=== PATIENT | female | born 1990 | race Caucasian/White ===

== ENCOUNTER 2016-04-27 12:52 | Emergency (ER) | payer OTHER ==
[2016-04-27 13:50] VITALS: BP 114/62
[2016-04-27 14:43] LABS: MANUAL DIFF NEEDED? NO
[2016-04-27 14:49] LABS: BASO% 0.3 % (0.0-0.8); EOS# 0.22 X1000 (0.0-0.7); EOS% 2.4 % (0.0-10.0); HEMATOCRIT 41.8 % (37.0-47.0); HEMOGLOBIN 14.1 g/dL (12.0-16.0); IMM GRAN# 0.02 X1000 (0.0-0.04); IMM GRAN% 0.2 % (0.0-0.5); LYMPH# 2.11 X1000 (1.2-3.4); LYMPH% 23.1 % (20.5-51.1); MCH 31.5 PG (27-31); MCHC 33.7 g/dL (33-37); MCV 93.3 FL (81-99); MONO# 0.72 X1000 (0.11-0.59); MONO% 7.9 % (1.7-9.3); MPV 11.8 FL (7.4-10.4); NEUT% 66.1 % (42.2-75.2); PLT 259 X1000 (130-400); RBC 4.48 XMIL (4.2-5.4)
[2016-04-27 15:09] LABS: AGAP 10; ALBUMIN 4.1 g/dL (3.5-5.0); ALKALINE PHOSPHATASE 75 U/L (32-104); BUN 6 mg/dL (8-22); CALCIUM 9.4 mg/dL (8.8-10.2); CHLORIDE 105 mmol/L (98-107); COSMO 276; GOT 38 U/L (10-30); GPT 11 U/L (10-36); SODIUM 139 mmol/L (136-145); TCO2 24 mmol/L (25-35); TOTAL BILIRUBIN 0.61 mg/dL (0.20-1.00); TOTAL PROTEIN 6.9 g/dL (6.3-8.3)
--- NOTE | 2016-04-27 16:01 | PROVIDER DOCUMENTATION ---
HPI-EENT General - General Chief Complaint: Abscess Stated Complaint: FACIAL SWELLING/EYE COMPLAINT Time Seen by Provider: 04/27/16 15:43 Source: patient Allergies/Adverse Reactions: Patient Allergies Allergy/AdvReac Type Severity Reaction Status Date / Time No Known Allergies Allergy Verified 04/27/16 16:01 Home Medications: Home Medication List Medication Instructions Recorded Confirmed Last Taken Type Cephalexin [Keflex] 500 mg PO 4XDAY #40 capsule 04/27/16 Unknown Rx Clindamycin [Cleocin] 300 mg PO DIRECTED 04/27/16 04/27/16 Unknown History Sulfamethoxazole/Trimethoprim 1 each PO DIRECTED 04/27/16 04/27/16 Unknown History [Bactrim Ds Tablet] - History of Present Illness-EENT General Nature of Presenting Problem: 25 y/o WF c/o facial swelling x 3 days. Pt states that she was seen at urgent care yesterday and given dx of cellulitis and given 2 shots and 2 Abx-bactrim, clindamycin. States today, swelling is worse and involves the eyes, L>R. Denies any vision changes. States started at bridge of nose and spread to forehead and bilat eye orbits. Review of Systems - Adult - REVIEW OF SYSTEMS - ADULT Constitutional: reports: no symptoms reported. denies: chills, fever Eyes: reports: see HPI, discharge, eye pain, redness. denies: blurred vision, double vision Ears, Nose, Mouth & Throat: reports: no symptoms reported. denies: ear pain, nose pain Cardiovascular: reports: no symptoms reported. denies: chest pain, palpitations Respiratory: reports: no symptoms reported. denies: dyspnea on exertion, shortness of breath Gastrointestinal: reports: no symptoms reported. denies: abdominal pain, nausea , vomiting Genitourinary: reports: no symptoms reported. denies: dysuria, frequency Musculoskeletal: reports: no symptoms reported. denies: joint pain, joint swelling Integumentary: reports: see HPI, other. denies: nail changes, rash Neurological: reports: no symptoms reported. denies: numbness, paresthesia Psychiatric: reports: no symptoms reported Endocrine: reports: no symptoms reported. denies: cold intolerance, heat intolerance Hematologic/Lymphatic: reports: no symptoms reported. denies: easy bruising, prolonged bleeding Allergic/Immunologic: reports: no symptoms reported All Other Systems: Reviewed and Negative Past History - Adult - PAST MEDICAL HISTORY-ADULT Review of Records: reports: Nursing Assessment Review, Medications Reviewed - SOCIAL HISTORY Smoking: cigarettes, less than 1 pack/day Alcohol Use Frequency: never Physical Exam- EENT - Physical Exam EENT Initial Vital Signs Reviewed: Yes General Appearance: alert, mild distress Eye Exam: bilateral eye: PERRL, other (bilat orbital redness/swelling L>R) Ear Exam: bilateral ear: auricle normal Throat Exam: normal mouth inspection Neck: supple, normal inspection. negative: lymphadenopathy Respiratory: lungs clear, normal breath sounds. negative: crackles, rales, rhonchi, stridor, wheezing Cardiovascular: regular rate, rhythm. negative: bradycardia, tachycardia Lymphatic: no adenopathy. negative: cervical node tenderness, striations, streaking Back Exam: normal inspection Extremity: normal gait Integumentary: normal color, normal turgor, warm/dry, other (swelling, redness, tenderness to bridge of nose, bilat eye orbits) Neurologic: negative: aphasia Psych/Mental Status: normal mood/affect, normal thought content, normal thought process, oriented x 3 Progress - PLAN OF CARE/RESULTS Progress/Plan/Lab Results: Laboratory Tests 04/27/16 04/27/16 14:36 14:36 WBC 9.12 RBC 4.48 Hgb 14.1 Hct 41.8 MCV 93.3 MCH 31.5 H MCHC 33.7 RDW Std Deviation 13.6 Plt Count 259 MPV 11.8 H Immature Gran % (Auto) 0.2 Neut % (Auto) 66.1 Lymph % (Auto) 23.1 [place] % (Auto) 7.9 Eos % (Auto) 2.4 Baso % (Auto) 0.3 Immature Gran # (Auto) 0.02 Neut # (Auto) 6.02 Lymph # (Auto) 2.11 [place] # (Auto) 0.72 H Eos # (Auto) 0.22 Baso # (Auto) 0.03 Sodium 139 Potassium 4.0 Chloride 105 Carbon Dioxide 24 L Anion Gap 10 BUN 6 L Creatinine 0.8 Estimated GFR/1.73 m2 > 60 BUN/Creatinine Ratio 8 Glucose 109 H Calculated Osmolality 276 Calcium 9.4 Total Bilirubin 0.61 AST 38 H ALT 11 Alkaline Phosphatase 75 Total Protein 6.9 Albumin 4.1 Globulin 2.8 Albumin/Globulin Ratio 1.5 Orders Category Date Time Status ED: Urine Bedside ORDERED Care 04/27/16 16:01 Active FACIAL BONES W/CONTRAST [CT] Stat Exams 04/27/16 15:56 Taken CBC WITH ELECTRONIC DIFF [HEME] Stat Lab 04/27/16 14:36 Completed CMP [COMPREHENSIVE METABOLIC PANEL] [CHEM] Stat Lab 04/27/16 14:36 Completed Dexamethasone [Decadron] Med 04/27/16 18:01 Discontinued 10 mg IV NOW ONE Vancomycin 1 gm/Ns 250 ml Med 04/27/16 17:27 Active IV NOW Vital Signs Temp Pulse Resp BP Pulse Ox 04/27/16 13:47 98.2 F 106 H 20 114/62 100 No Known Allergies Allergy (Verified 04/27/16 16:01) Cephalexin [Keflex] 500 mg PO 4XDAY #40 capsule 04/27/16 Clindamycin [Cleocin] 300 mg PO DIRECTED 04/27/16 Sulfamethoxazole/Trimethoprim [Bactrim Ds Tablet] 1 each PO DIRECTED Laboratory 04/27/16 04/27/16 14:36 14:36 WBC 9.12 RBC 4.48 Hgb 14.1 Hct 41.8 MCV 93.3 MCH 31.5 H MCHC 33.7 RDW Std Deviation 13.6 Plt Count 259 MPV 11.8 H Immature Gran % (Auto) 0.2 Neut % (Auto) 66.1 Lymph % (Auto) 23.1 [place] % (Auto) 7.9 Eos % (Auto) 2.4 Baso % (Auto) 0.3 Immature Gran # (Auto) 0.02 Neut # (Auto) 6.02 Lymph # (Auto) 2.11 [place] # (Auto) 0.72 H Eos # (Auto) 0.22 Baso # (Auto) 0.03 Sodium 139 Potassium 4.0 Chloride 105 Carbon Dioxide 24 L Anion Gap 10 BUN 6 L Creatinine 0.8 Estimated GFR/1.73 m2 > 60 BUN/Creatinine Ratio 8 Glucose 109 H Calculated Osmolality 276 Calcium 9.4 Total Bilirubin 0.61 AST 38 H ALT 11 Alkaline Phosphatase 75 Total Protein 6.9 Albumin 4.1 Globulin 2.8 Albumin/Globulin Ratio 1.[address] Wyman; he agreed with tx plan. Discussed medication use and f/u with pt. - CT/MRI 1 CT Study: Facial Bones Impression: See EMR Report (mild cellulitis. No abscess. -per Dr. Smith) Departure - Departure Time of Disposition Order: 17:35 DIAGNOSIS: Facial cellulitis Disposition: HOME 01 Certified Medical Emergency: Emergent Condition: Stable Additional Instructions: Continue taking current medications. Follow up with PCP if symptoms persist or get worse. Add in new medication to current regimen. ED Follow Up Instructions: You have been treated by a care provider in the Emergency Department. These instructions are being provided to you so you can have an understanding of how to care for yourself upon discharge. Upon discharge from the Emergency Department, you are responsible for making arrangements for follow-up care by a physician of your choice. Take all prescribed medications as directed. Return to the Emergency Department immediately for any new or worsening symptoms. You may call the Physician Referral phone number at [phone] to obtain a list of Physicians who are taking new patients. Prescriptions: Cephalexin [Keflex] 500 mg PO 4XDAY #40 capsule Referrals: None,PCP [Primary Care Provider] - Forms: Return to School/Parent Work Instructions: Cellulitis, [id number] Attestation - Physician/ CHRIS Attestation Patient care was provided by Advanced Practice Provider:: Yes Advanced Practice Provider:: Paty Bess Advanced Practice Provider documentation review:: The Mid-level provider documentation, treatment plan and medical decision making was reviewed by the physician who agrees with all treatment and medical decision making by the MLP.
[2016-04-27] MEDS ORDERED: VANCOMYCIN 1 GM/NS 250 ML IV ONE (17:27)
--- NOTE | 2016-04-27 17:31 | Diag Imaging Result Document ---
PROCEDURE NAME: FACIAL BONES W/CONTRAST - 04/27/2016 CT FACE WITH INTRAVENOUS CONTRAST: FINDINGS: No sinus opacification. No air fluid levels. There is only mild facial soft tissue swelling. No well defined fluid collection. No abscess. Normal larynx. There are small lymph nodes in the upper neck. No enlarged lymph nodes. The parotid and submandibular glands are symmetrical. IMPRESSION: Mild cellulitis. No abscess. A preliminary report was given at 5:14 p.m..
[2016-04-27] MEDS ORDERED: DECADRON IV ONE (18:01)
[2016-04-27] MEDS ORDERED: BENADRYL IV ONE (18:32)
== END 2016-04-27 19:24 | disposition home or self-care (01) ==
LOC: ED 12:52
DX: L03.211 Cellulitis of face (principal); R22.0 Localized swelling, mass and lump, head; H57.10 Ocular pain, unspecified eye; J34.89 Other specified disorders of nose and nasal sinuses; L29.9 Pruritus, unspecified; F17.210 Nicotine dependence, cigarettes, uncomplicated; Z71.6 Tobacco abuse counseling
CPT/HCPCS: 36415; 70487; 80053; 81025; 85025; 96365; 96375; J1200; J3370; Q9967